=== PATIENT | female | born 1985 ===

== ENCOUNTER 2022-03-07 09:45 | Inpatient (IN) | payer OTHER ==
[~2022-03-07] VITALS: Ht 177.8 cm; Wt 60.8 kg
[2022-03-07] MEDS ORDERED: TRINESSA (11:13)
[2022-03-08] MEDS ORDERED: TRI-SPRINTEC T1 EACH (09:33)
== END 2022-03-11 10:59 | disposition home or self-care (01) | DRG 742 ==
LOC: O/R 03-08 05:30 → SURG 03-08 09:45 → OB/GYN 03-08 15:34
PROVIDERS: ADMIT Specialist; ATTEND Specialist
PROC: 0UDB8ZZ Extraction of Endometrium, Via Natural or Artificial Opening Endoscopic (ICD-10-PCS; 2022-03-08)
PROC: 0UB04ZZ Excision of Right Ovary, Percutaneous Endoscopic Approach (ICD-10-PCS; principal; 2022-03-08 09:30)
PROC: 30233N1 Transfusion of Nonautologous Red Blood Cells into Peripheral Vein, Percutaneous Approach (ICD-10-PCS; 2022-03-10)
DX: D27.0 Benign neoplasm of right ovary (principal); D62 Acute posthemorrhagic anemia; Z20.822 Contact with and (suspected) exposure to COVID-19

== ENCOUNTER 2024-10-29 14:13 | Outpatient (CLI) | payer OTHER ==
[~2024-10-29 14:13] MED LIST: TRI-SPRINTEC T1 EACH; TRINESSA
== END 2024-10-29 15:24 | disposition home or self-care (01) ==
LOC: NST 14:13
PROVIDERS: ATTEND Obstetrics & Gynecology Maternal & Fetal Medicine
DX: Z34.83 Encounter for supervision of other normal pregnancy, third trimester (principal)

== ENCOUNTER 2024-11-06 12:59 | Inpatient (IN) | payer OTHER ==
[~2024-11-06] VITALS: Ht 177.8 cm; Wt 3.2 kg
[2024-11-13 00:24] VITALS: BP 110/59
[2024-11-13] MEDS ORDERED: PRENATAL TABLE1 EAC4 PO (01:26)
[2024-11-13] MEDS ORDERED: ADULT LOW DOSE81 M1 PO (01:27)
[2024-11-13] MEDS ORDERED: RINGERS SOLUTION,LACTATED 1,000 ML IV SCH (01:30)
[2024-11-13] MEDS ORDERED: AMPICILLIN SODIUM 2,000 MG VIAL IV ONE (01:30)
[2024-11-13 02:27] LABS: BASO % 0.3 % (0.1-1.2); EOS # 0.01 (0.04-0.54); EOS % 0.1 % (0.7-7.0); HEMOGLOBIN 11.3 g/dL (11.2-15.7); LYMPH # 1.44 (1.18-3.74); LYMPH % 12.8 % (19.3-53.1); MEAN CORPUSCULAR HEMOGLOBIN 29.5 pg (25.6-32.2); MONO # 0.63 (0.24-0.82); MONO % 5.6 % (4.7-12.5); NEUT # 9.04 (1.56-6.13); NEUT % 80.6 % (34.0-71.1); PLATELET COUNT 226 K/uL (163-369); RED BLOOD COUNT 3.83 M/uL (3.93-5.22); RED CELL DISTRIBUTION WIDTH 13.9 % (11.6-14.4)
[2024-11-13 02:33] LABS: ALBUMIN 3.1 gm/dL (3.4-5.0); BILIRUBIN TOTAL 0.42 mg/dL (0.3-1.2); CALCIUM 8.8 mg/dL (8.5-10.1); GFR 129.8; GLOBULINA 3.9 G/DL (2.4-3.5); INR 0.95; PARTIAL THROMBOPLASTIN TIME 26.1 SECONDS (22.0-34.0); POTASSIUM 3.97 mEq/L (3.5-5.1); PROTHROMBIN TIME 10.4 SECONDS (9.0-11.5)
[2024-11-13 02:34] LABS: CREATININE SERUM 0.53 mg/dL (0.55-1.02)
[2024-11-13 03:51] VITALS: BP 117/71
[2024-11-13] MEDS ORDERED: MORPHINE SULFATE 4 MG/ML VIAL IV STA (03:52)
[2024-11-13] MEDS ORDERED: OXYTOCIN 20 UNITS/1000ML RL PIGGYBAG IV ONE (04:14)
[2024-11-13] MEDS ORDERED: ERYTHROMYCIN BASE OPHT 1GM EACH TUBE OP ONE ×2 (04:14→11:17)
[2024-11-13] MEDS ORDERED: CHLORHEXIDINE GLUCONATE 120 ML BOTTLE TOP ONE (04:14)
[2024-11-13] MEDS ORDERED: LIDOCAINE HCL 1% 10ML VIAL ONE (04:14)
[2024-11-13] MEDS ORDERED: AMPICILLIN SODIUM 1,000 MG VIAL IV SCH (05:00)
[2024-11-13 07:17] VITALS: BP 122/70
[2024-11-13] MEDS ORDERED: OXYTOCIN 20 UNITS/500ML RL PIGGYBAG IV ONE (08:07)
[2024-11-13] MEDS ORDERED: OXYTOCIN 500 ML IV SCH (08:45)
[2024-11-13] MEDS ORDERED: CEFAZOLIN SODIUM 1,000 MG VIAL IV SCH (09:45)
[2024-11-13] MEDS ORDERED: CITRIC ACID/SODIUM CITRATE 30 ML BLIST.PACK PO SCH (09:45)
[2024-11-13] MEDS ORDERED: METHYLERGONOVINE MALEATE 0.2 MG/ML AMPUL ONE (09:55)
[2024-11-13] MEDS ORDERED: OXYTOCIN 1,000 ML IV ONE (10:15)
[2024-11-13] MEDS ORDERED: MORPHINE SULFATE 4 MG/ML CARTRIDGE IV SCH (10:15)
[2024-11-13] MEDS ORDERED: OXYTOCIN 10 UNITS/ML VIAL ONE (11:17)
[2024-11-13] MEDS ORDERED: KETOROLAC TROMETHAMINE 30 MG VIAL IV SCH (12:00)
[2024-11-13 14:40] VITALS: BP 107/64
[2024-11-13 16:51] VITALS: BP 104/61; O2SAT 98
[2024-11-14 00:20] VITALS: BP 94/55; O2SAT 97
[2024-11-14] MEDS ORDERED: ACETAMINOPHEN 500 MG GEL..CAP PO SCH (06:00)
[2024-11-14 07:33] LABS: BASO % 0.2 % (0.1-1.2); EOS # 0.01 (0.04-0.54); EOS % 0.1 % (0.7-7.0); HEMATOCRIT 31.7 % (34.1-44.9); HEMOGLOBIN 10.5 g/dL (11.2-15.7); LYMPH # 1.61 (1.18-3.74); LYMPH % 9.5 % (19.3-53.1); MEAN CORPUSCULAR HEMOGLOBIN 29.3 pg (25.6-32.2); MONO # 0.91 (0.24-0.82); MONO % 5.4 % (4.7-12.5); NEUT # 14.23 (1.56-6.13); NEUT % 84.2 % (34.0-71.1); PLATELET COUNT 224 K/uL (163-369); RED BLOOD COUNT 3.58 M/uL (3.93-5.22); RED CELL DISTRIBUTION WIDTH 14.1 % (11.6-14.4)
[2024-11-14 08:00] VITALS: BP 103/64; O2SAT 99
[2024-11-14] MEDS ORDERED: PNV,CALCIUM 72/IRON/FOLIC ACID 1 TAB TABLET PO SCH (09:00)
[2024-11-14] MEDS ORDERED: GABAPENTIN 300 MG CAPSULE PO SCH (09:00)
[2024-11-14] MEDS ORDERED: SIMETHICONE 125 MG CAPSULE PO SCH (09:00)
[2024-11-14] MEDS ORDERED: DOCUSATE SODIUM 100MG CAP PO SCH (09:00)
[2024-11-14] MEDS ORDERED: IBUprofen 600 MG TABLET PO SCH (12:00)
[2024-11-14 17:00] VITALS: BP 101/60; O2SAT 99
[2024-11-15 00:20] VITALS: BP 100/60
[2024-11-15 08:00] VITALS: BP 114/69; O2SAT 98
== END 2024-11-15 13:47 | disposition home or self-care (01) | DRG 788 ==
LOC: OB/GYN 11-13 01:17 → LDR 11-13 01:17 → O/R 11-13 10:38 → OB/GYN 11-13 10:46
PROVIDERS: Obstetrics & Gynecology Gynecology; ADMIT Obstetrics & Gynecology Maternal & Fetal Medicine; ATTEND Obstetrics & Gynecology Maternal & Fetal Medicine
PROC: 4A1HXCZ Monitoring of Products of Conception, Cardiac Rate, External Approach (ICD-10-PCS; 2024-11-13)
PROC: 10D00Z1 Extraction of Products of Conception, Low, Open Approach (ICD-10-PCS; principal; 2024-11-13 13:00)
DX: O82 Encounter for cesarean delivery without indication (principal); O62.1 Secondary uterine inertia; O99.824 Streptococcus B carrier state complicating childbirth; Z3A.39 39 weeks gestation of pregnancy; Z37.0 Single live birth

== ENCOUNTER 2024-11-10 13:37 | Outpatient (CLI) | payer OTHER | END 2024-11-10 14:52 | disposition home or self-care (01) | LOC: NST 13:37 | PROVIDERS: ATTEND Obstetrics & Gynecology Maternal & Fetal Medicine | DX: Z34.83 Encounter for supervision of other normal pregnancy, third trimester (principal) ==